=== PATIENT | female | born 2000 | race Two or more races ===

== ENCOUNTER 2021-05-18 14:57 | Emergency (ER) | payer SELFPAY ==
[2021-05-18 17:18] LABS: #Eosinphils 0.1 10x3/uL (0.0-0.5); #Monocytes 0.5 10x3/uL (0.0-1.1); #Neutrophils 4.5 10x3/uL (1.5-8.4); %Basophils 0.6 % (0.0-2.0); %Eosinophils 0.9 % (0.0-6.0); %Monocytes 6.5 % (0.0-10.0); %Neutrophils 63.7 % (40.0-75.0); Hemoglobin 14.2 g/dL (12.0-15.5); Mean Corpuscular HGB CONC 32.9 g/dL (32.0-36.0); Mean Corpuscular Hemoglobin 29.5 pg (27.0-33.0); Mean Corpuscular Volume 89.8 fl (81.6-98.3); Mean Platelet Volume 10.6 fl (7.4-10.4); Platelet Count 277 10x3/uL (150-450); RBC Distribution Width 11.9 % (11.5-14.5); Red Blood Cell (RBC) Count 4.81 10x6/uL (3.90-5.03)
[2021-05-18] MEDS ORDERED: Ondansetron PF 4 MG/2 ML Vial ONE (17:22)
[2021-05-18] MEDS ORDERED: Famotidine/PF 20 mg/2ml Vial ONE (17:22)
[2021-05-18] MEDS ORDERED: Sucralfate 1 GM/10 ML UDCUP ONE (17:22)
[2021-05-18 17:54] LABS: Bilirubin Neg (Negative); Blood, Urine 10 (Negative); Clarity Slightly Cloudy (Clear); Glucose, Urine (Dipstick) Normal (Negative); Ketone, Urine 50 mg/dL (Negative); Leukocyte 25 (Negative); Nitrite Negative (Negative); Protein, Urine (Dipstick) 15 mg/dl (Neg-Trace); Specific Gravity, Urine 1.015 (1.002-1.036); Urobilinogen Normal mg/dL (Less than 2)
[2021-05-18 18:24] LABS: Bacteria/HPF None Seen HPF (None Seen); Mucous/LPF 2+ LPF (<2+); RBC/HPF 0-3 HPF (0-3); WBC/HPF 0-3 HPF (0-3)
[2021-05-18 18:25] LABS: ALT (SGPT) 12 U/L (8-55); AST (SGOT) 19 U/L (5-34); Albumin 4.9 g/dL (3.5-5.0); Alkaline Phosphatase 74 U/L (40-100); Anion Gap 13 mmol/L (10-20); BUN (Urea Nitrogen) 6 mg/dL (7.0-18.7); Bilirubin, Total 0.7 mg/dL (0.2-1.2); Calc. Creatinine Clearance 0 mL/min (70-130); Calcium 10.1 mg/dL (7.8-10.44); Carbon Dioxide 25 mmol/L (22-29); Chloride 104 mmol/L (98-107); Globulin 3.3 g/dL (2.4-3.5); Glucose 90 mg/dL (70-105); Lipase 10 U/L (8-78); Potassium 3.9 mmol/L (3.5-5.1); Protein, Total 8.2 g/dL (6.0-8.3); Sodium 138 mmol/L (136-145)
[2021-05-18 19:43] LABS: Pregnancy Test - Urine (BHCG) Negative (Negative); Pregu Control Background? CLEAR/WHITE (CLR/WHITE); Pregu Control Bar Appear? YES (CONTROL BAR); Specific Gravity 1.015 (1.002-1.036)
== END 2021-05-18 20:27 | disposition home or self-care (01) ==
LOC: CSHERS 14:57
DX: R10.13 Epigastric pain (principal)
CPT/HCPCS: 36415; 76705; 80053; 81003; 81015; 81025; 83605; 83690; 85025; 94760; 96374; 96375; J2405; S0028

== ENCOUNTER 2023-05-28 11:03 | Emergency (ER) | payer SELFPAY ==
[2023-05-28] MEDS ORDERED: Ondansetron ODT 4 MG TAB ONE (11:27)
[2023-05-28 11:55] LABS: Bilirubin Neg (Negative); Blood, Urine 10 (Negative); Clarity Slightly Cloudy (Clear); Glucose, Urine (Dipstick) Normal (Negative); Ketone, Urine 150 mg/dL (Negative); Leukocyte 25 (Negative); Nitrite Negative (Negative); Protein, Urine (Dipstick) 30 mg/dl (Neg-Trace); Urobilinogen Normal mg/dL (Less than 2)
[2023-05-28 12:01] LABS: Pregnancy Test - Urine (BHCG) Negative (Negative); Pregu Control Background? CLEAR/WHITE (CLR/WHITE); Pregu Control Bar Appear? YES (CONTROL BAR)
[2023-05-28 12:31] LABS: Bacteria/HPF 1+ HPF (None Seen); CAUTI Indications for Culture Dysuria,urgency,freq; Mucous/LPF 1+ LPF (<2+); RBC/HPF 0-3 HPF (0-3)
[2023-05-28 12:32] LABS: Urine Culture Reflex No No
== END 2023-05-28 12:51 | disposition home or self-care (01) ==
LOC: CSHERS 11:03
DX: A74.9 Chlamydial infection, unspecified (principal)
CPT/HCPCS: 81001; 81025; 87086; 99283; Q0162

== ENCOUNTER 2023-05-30 19:39 | Emergency (ER) | payer SELFPAY ==
[2023-05-30] MEDS ORDERED: Ondansetron ODT 4 MG TAB ONE (20:23)
== END 2023-05-30 20:23 | disposition home or self-care (01) ==
LOC: CSHERS 19:39
DX: R11.0 Nausea (principal)
CPT/HCPCS: 99283; Q0162

== ENCOUNTER 2023-07-03 18:49 | Emergency (ER) | payer SELFPAY ==
[2023-07-03] MEDS ORDERED: Acetaminophen 500 MG TAB ONE (19:58)
[2023-07-03] MEDS ORDERED: Dexamethasone 10 MG/ML VIAL ONE (19:59)
[2023-07-03] MEDS ORDERED: Bicillin LA 1.2 MILLION UNITS/2 ML SYRINGE IM SCH (20:15)
== END 2023-07-03 20:32 | disposition home or self-care (01) ==
LOC: CSHERS 18:49
DX: J02.0 Streptococcal pharyngitis (principal)
CPT/HCPCS: 87430; 96372; 99283; J0561; J1100